=== PATIENT | female | born 1985 | race Caucasian/White ===

== ENCOUNTER → 2024-03-18 09:06 | Outpatient (REF) | payer OTHER, SELFPAY | LOC: MRI 3T 09:06 | PROVIDERS: ATTENDING PHYSICIAN Orthopaedic Surgery Hand Surgery | DX: M25.511 Pain in right shoulder (principal) | CPT/HCPCS: 73221 ==

== ENCOUNTER 2024-04-22 06:06 | Day surgery (SDC) | payer OTHER, SELFPAY ==
[2024-04-22 06:19] VITALS: BMI 23.8
[2024-04-22 06:20] VITALS: BMI 23.8
[2024-04-22] MEDS: CELEBREX 200 MG PO (06:21)
[2024-04-22] MEDS: TYLENOL 1000 MG PO (06:21)
[2024-04-22 06:23] VITALS: BP 119/64
[2024-04-22] MEDS: NORMOSOL-R/PLASMALYTE-A 1000 IV (06:41)
[2024-04-22 08:50] VITALS: BP 123/50
[2024-04-22 09:00] VITALS: BP 113/52
[2024-04-22] MEDS: DILAUDID 0.25 MG IV ×2 (09:05→09:19)
[2024-04-22 09:45] VITALS: BP 116/67
[2024-04-22 10:00] VITALS: BP 105/59
[2024-04-22 10:15] VITALS: BP 119/65
== END 2024-04-22 10:33 | disposition home or self-care (01) ==
LOC: SDS 06:06
PROVIDERS: ATTENDING PHYSICIAN Orthopaedic Surgery Hand Surgery
DX: M75.42 Impingement syndrome of left shoulder (principal); M75.02 Adhesive capsulitis of left shoulder; M75.22 Bicipital tendinitis, left shoulder
CPT/HCPCS: 23430; 29826; 29822

== ENCOUNTER → 2024-09-10 06:46 | Outpatient (REF) | payer OTHER, SELFPAY | LOC: HWWDC 06:46 | PROVIDERS: ATTENDING PHYSICIAN Internal Medicine | DX: Z12.31 Encounter for screening mammogram for malignant neoplasm of breast (principal) | CPT/HCPCS: 77063; 77067 ==

== ENCOUNTER → 2024-09-25 13:29 | Outpatient (REF) | payer OTHER, SELFPAY | LOC: HWRAD 13:29 | PROVIDERS: ATTENDING PHYSICIAN Student in an Organized Health Care Education/Training Program; FAMILY PHYSICIAN Internal Medicine | DX: Z30.431 Encounter for routine checking of intrauterine contraceptive device (principal) | CPT/HCPCS: 76830; 76856 ==